=== PATIENT | female | born 1975 | race Caucasian/White ===

== ENCOUNTER → 2016-10-07 | Outpatient (CLI) | payer OTHER ==
--- NOTE | 2016-10-07 10:48 | REP ---
CT MAXILLOFACIAL WITHOUT CONTRAST: 10/07/2016 CLINICAL HISTORY: Chronic pansinusitis. TECHNIQUE: Axial soft-tissue and bone windows with coronal bone window reconstructions. FINDINGS: There are no prior studies. Axial soft tissue and bone window settings show slight deviation nasal septum towards the right. Nasal bones and nasal spine and maxilla are without fracture. There is chronic thickening of the maxillary sinus devine with mucosal thickening around the maxillary sinuses bilaterally, right more than left. There appear to have been bilateral uncinectomies and antrostomies noted. Mucosal thickening and opacification of many of the ethmoid air cells anteriorly. The right frontal sinus thickened mucosa. The left frontal sinus and circumferential mucosal thickening of both sphenoid sinuses also seen. A polypoid appearance to the middle turbinates with opacification of the nasal air passages around the middle and superior turbinates. The orbits and contents show globes, optic nerves and extraocular muscles intact. Mastoids, skull base, zygomatic arches and bony orbits all intact. Visualized portions of mandible and there are articulations with the condylar fossa on each side normal. IMPRESSION: 1. Chronic pansinusitis with mucosal thickening throughout and with prior antrostomies and uncinectomies noted. Polypoid appearance to the middle and superior turbinates with occlusion of the upper nasal airways. Inferior turbinates and airway grossly intact. 2. Orbits and contents, mastoids, skull base and visualized bones otherwise unremarkable. Signed by Holden Sanon MD 10/07/2016 10:58 A
== END ==
LOC: M RAD 09:54
PROVIDERS: ATTEND Otolaryngology
DX: J32.4 Chronic pansinusitis (principal)